=== PATIENT | female | born 1970 | race Caucasian/White ===

== ENCOUNTER 2018-12-01 11:54 | Emergency (ER) | payer SELFPAY ==
--- NOTE | 2018-12-01 14:11 | RAD ---
LUMBAR SPINE 3 VIEWS: HISTORY: Right lower back pain for 2 days radiating down right leg. FINDINGS: No evidence for acute fracture, dislocation, or significant malalignment. Very mild facet arthrosis. IMPRESSION: Mild degenerative changes without acute fracture or dislocation. POS: [facility]
[2018-12-01] MEDS ORDERED: Dexamethasone 10 MG/ML VIAL ONE (14:22)
[2018-12-01] MEDS ORDERED: Ketorolac Tromethamine 30 MG/ML VIAL ONE (14:22)
== END 2018-12-01 14:56 | disposition home or self-care (01) ==
LOC: ERS 11:54
DX: S39.012A Strain of muscle, fascia and tendon of lower back, initial encounter (principal); Z87.442 Personal history of urinary calculi; X58.XXXA Exposure to other specified factors, initial encounter
CPT/HCPCS: 72100; 96374; 96375; J1100; J1885

== ENCOUNTER 2018-12-07 12:54 | Outpatient (CLI) | payer OTHER, SELFPAY ==
--- NOTE | 2018-12-07 13:47 | MRI ---
FEXAM: MRI Lumbar Spine WO Con DATE: 12/07/2018 12:00 AM ORDERING PHYSICIAN: Thiago Salazar MD INDICATION: Right leg and back pain FINDING: The bone marrow signal intensity is within normal limits. There is a 1.7 cm cyst within the left mid kidney. There is a smaller subcentimeter cyst within the s uperior pole of the right kidney. At L5-S1, there is a 1.2 cm heterogeneous T2, T1 hypointense extra-axial lesion seen inferior to the right paracentral region of the L5-S1 disc. This mass is posterior to the right upper aspect of the S 1 vertebral level. This mass induces prominent mass effect on the traversing right S1 nerve root and is most suspicious for a sequestered disc fragment; however, extra axial mass cannot be entirely excl uded. There is mild neural foraminal narrowing at L5-S1 due to broad-based disc bulge and facet hyper trophy.. At L4-5, there is a mild broad-based bulge but no appreciable central canal or neural foraminal narro wing. At L3-4, there is no appreciable central canal or neural foraminal narrowing. At L2-3, there is no appreciable central canal or neural foraminal narrowing. At L1-L2, there is no appreciable central canal or neural foraminal narrowing. At T12-L1, there is no appreciable central canal or neural foraminal narrowing. IMPRESSION: 1. Sequestered disc versus extra-axial mass within the region of the right lateral recess just inferi or to the right L5-S1 disc space. A follow-up pre and postcontrast MR examination lumbar spine is rec ommended for further characterization. 2. Mild multilevel spondylosis of the lumbar spine
== END 2018-12-07 12:55 | disposition home or self-care (01) ==
LOC: MRI 12:54
PROVIDERS: ATTEND Neurological Surgery
DX: M47.26 Other spondylosis with radiculopathy, lumbar region (principal)
CPT/HCPCS: 72148